=== PATIENT | female | born 1955 | race Caucasian/White ===

== ENCOUNTER → 2016-04-23 | Outpatient (CLI) | payer OTHER ==
[~2016-04-23] MED LIST: /PANT40TA OR; /SUCR1TA OR; ALLO100T PO; ATIV1TAB10 PO; BACITAB3 PO; CIPR25SS OR; COLA100C PO; ESTR25TA PO; FERR325T OR; FISH1000 PO; FLON0.05; HAIRTAB5 PO; HYDR25TA6 PO; JANU100T PO; LIPI10TA PO; LISI10TA2 PO; LISI10TA4 PO; LUTE6TAB2 PO; MEDR2.5T2 PO; METF-414 PO; NORCOTAB PO; OXYC-299 PO; PRAV40TA PO; PRIN10TA PO; PROBCAP13 PO; SENO8.6T2 PO; THERTAB30 PO; VENL100T PO; VENL75CA PO; ZANA2CAP PO; ZOFR20TA PO
--- NOTE | 2016-04-23 12:03 | REPMRS ---
Patient History The patient states she had a clinical breast exam in Patient is postmenopausal and had first child at age 34. No known family history of cancer. Taking progesterone for 12 years. Taking unspecified hormones for 12 years. Digital Woman Screen Mammo: April 23, 2016 - Exam #: [id number] Bilateral CC and MLO view(s) were taken. Technologist: Brittani Carpenter, Technologist Prior study comparison: March 13, 2015, digital woman screen mammo performed at [facility]. March 09, 2014, digital woman screen mammo performed at [facility]. FINDINGS: There are scattered fibroglandular densities. There has been no change in the appearance of the mammogram from the prior studies. There is a mild amount of residual fibroglandular tissue which is fairly symmetric. There is no interval development of dominant mass, architectural distortion, or clustered microcalcification suggestive of malignancy. ASSESSMENT: BI-RADS/ACR category 1 mammogram. Negative. Recommendation Routine screening mammogram in 1 year (for women over age 40). This mammogram was interpreted with the aid of an FDA-approved computer-aided dectection system. Electronically Signed By: Roscoe Roman MD 04/23/16 0757
== END ==
LOC: M WHC 10:04
PROVIDERS: ATTEND Nurse Practitioner Family
DX: Z12.31 Encounter for screening mammogram for malignant neoplasm of breast (principal)

== ENCOUNTER → 2016-04-23 | Outpatient (REF) | payer OTHER | LOC: M SFHCWAGY 10:38 | PROVIDERS: ATTEND Nurse Practitioner Family | DX: Z12.4 Encounter for screening for malignant neoplasm of cervix (principal) ==

== ENCOUNTER → 2016-07-10 | Outpatient (REF) | payer OTHER ==
[~2016-07-10] MED LIST changes: -COLA100C PO; +COLA100C3 PO
[2016-07-10 14:05] LABS: RETIC HEMOGLOBIN CONTENT CHr 30.2 PG (24-36); RETICULOCYTE ABSOLUTE ADVIA212 62 x10(9)/L (17-77)
[2016-07-10 14:07] LABS: REASON FOR REVIEW COMPREHENSIVE REVIEW
[2016-07-10 14:28] LABS: TOTAL PROTEIN 7.8 GM/DL (6.4-8.2)
[2016-07-12 11:03] LABS: ALBUMIN 4.52 GM/DL (3.29-5.55); GAMMA GLOBULIN % 9.1 % (11.1-18.8)
[2016-07-14 14:08] LABS: SOLUBLE TRANSFERRIN RECEPTOR 16.1 nmol/L (12.2-27.3)
== END ==
LOC: M LAB REF 13:21
PROVIDERS: ATTEND Internal Medicine Medical Oncology
DX: D64.9 Anemia, unspecified (principal)

== ENCOUNTER → 2016-07-17 | Outpatient (CLI) | payer OTHER ==
--- NOTE | 2016-07-17 17:20 | REP ---
LEFT AXILLARY ULTRASOUND: Real-time sonographic evaluation of the left axillary region performed. Several lymph nodes are seen in the left axillary region. The largest measures 1.9 x 1.0 x 1.4 cm and 2.8 x 0.9 x 1.4 cm both at the upper limits of normal in size. No other cystic or solid nodule is seen. IMPRESSION: ACR 2 benign. Normal sized lymph nodes are seen in the left axillary region with no other evidence of suspicious cystic or solid nodule. Signed by Roscoe Roman MD 07/18/2016 04:17 P
== END ==
LOC: M RAD 09:53
PROVIDERS: ATTEND Internal Medicine Medical Oncology
DX: D64.9 Anemia, unspecified (principal); D72.819 Decreased white blood cell count, unspecified

== ENCOUNTER → 2017-07-24 | Outpatient (REF) | payer MEDICARE, OTHER ==
[2017-07-24 13:52] LABS: TOTAL PROTEIN,RANDOM URINE 41.4 MG/DL (0.0-12.0)
[2017-07-25 14:10] LABS: FERRITIN 38 NG/ML (8-252); IRON (FE) 79 UG/DL (50-170); PERCENT SATURATION 21.1 % (13.2-45.0); TOTAL IRON BINDING CAPACITY 374 UG/DL (250-450); TOTAL PROTEIN 7.8 GM/DL (6.4-8.2)
[2017-07-27 00:06] LABS: FREE LAMBDA LIGHT CHAINS SERUM 30.5 mg/L (5.7-26.3); KAPPA/LAMBDA RATIO SERUM 0.82 (0.26-1.65)
[2017-07-29 13:20] LABS: ALBUMIN 4.46 GM/DL (3.29-5.55); ALBUMIN % 57.2 % (55.8-66.1); ALPHA-1-GLOBULIN % 5.3 % (2.9-4.9); ALPHA-1-GLOBULINS 0.41 GM/DL (0.17-0.41); ALPHA-2-GLOBULINS 1.13 GM/DL (0.42-0.99); ALPHA-2-GLOBULINS % 14.5 % (7.1-11.8); BETA-1-GLOBULINS 0.48 GM/DL (0.28-0.60); BETA-1-GLOBULINS % 6.2 % (4.7-7.2); BETA-2-GLOBULINS 0.55 GM/DL (0.19-0.55); GAMMA GLOBULIN % 9.8 % (11.1-18.8); GAMMA GLOBULINS 0.76 GM/DL (0.65-1.58)
== END ==
LOC: M LAB REF 12:54
DX: N18.3 Chronic kidney disease, stage 3 (moderate) (principal); E83.52 Hypercalcemia; D63.1 Anemia in chronic kidney disease
CPT/HCPCS: 83550

== ENCOUNTER 2017-08-27 09:02 | Day surgery (SDC) | payer MEDICARE ==
[2017-08-27 09:48] LABS: BEDSIDE GLUCOSE 135 MG/DL (80-115)
[2017-08-27] MEDS: LR 1,000 ML IV (09:55)
[2017-08-27] MEDS ORDERED: fentaNYL 250 MCG/5 ML INJECTION (J3010) As Ordered (10:06)
[2017-08-27] MEDS ORDERED: ONDANSETRON 4MG/2ML VIAL (J2405) As Ordered (10:06)
[2017-08-27] MEDS ORDERED: LIDOCAINE 2% INJ 100 MG/5 ML SDV (FOR ANES.) As Ordered (10:06)
[2017-08-27] MEDS ORDERED: PROPOFOL 200 MG/20 ML VIAL As Ordered (10:06)
[2017-08-27] MEDS ORDERED: dexameTHASONE 4 MG/ML 1ML VIAL (J1100) As Ordered (10:06)
[2017-08-27] MEDS ORDERED: ROCURONIUM BROMIDE 50 MG/5 ML VIAL As Ordered (10:06)
[2017-08-27] MEDS ORDERED: MIDAZOLAM INJ 2 MG/2 ML VIAL (J2250) As Ordered (10:08)
[2017-08-27] MEDS ORDERED: SUCCINYLCHOLINE 100 MG/5 ML SYRINGE (J0330) As Ordered (11:26)
[2017-08-27] MEDS ORDERED: LR 1,000 ML IV ×2 (12:00→12:15)
[2017-08-27] MEDS ORDERED: ACETAMINOPH W/CODEINE #3 TAB UD As Ordered (12:06)
[2017-08-27] MEDS: ACETAMINOPH W/CODEINE #3 TAB UD PO (12:10)
[2017-08-27] MEDS ORDERED: ONDANSETRON 4MG/2ML VIAL (J2405) IV (12:15)
[2017-08-27] MEDS ORDERED: fentaNYL 100 MCG/2 ML INJECTION (J3010) IV (12:15)
== END 2017-08-27 13:10 | disposition home or self-care (01) ==
LOC: M SDC 09:02
DX: C02.9 Malignant neoplasm of tongue, unspecified (principal); D63.1 Anemia in chronic kidney disease; E11.22 Type 2 diabetes mellitus with diabetic chronic kidney disease; N18.3 Chronic kidney disease, stage 3 (moderate); F32.9 Major depressive disorder, single episode, unspecified; Z88.8 Allergy status to other drugs, medicaments and biological substances; Z79.899 Other long term (current) drug therapy; I10 Essential (primary) hypertension; K64.8 Other hemorrhoids
CPT/HCPCS: 41120

== ENCOUNTER → 2017-09-25 | Outpatient (REF) | payer MEDICARE ==
[2017-09-29 14:14] LABS: ALUMINUM LEVEL 10 ug/L (0-9)
[2017-10-02 14:19] LABS: UPEP INTERPRETATION NO M-SPIKE NOTED; URINE VOLUME RANDOM ML
== END ==
LOC: M LAB REF 17:07
DX: N18.3 Chronic kidney disease, stage 3 (moderate) (principal); E83.52 Hypercalcemia
CPT/HCPCS: 82108

== ENCOUNTER → 2017-10-13 | Outpatient (CLI) | payer MEDICARE | LOC: M WHC 15:11 | DX: Z01.419 Encounter for gynecological examination (general) (routine) without abnormal findings (principal); Z12.31 Encounter for screening mammogram for malignant neoplasm of breast (principal); Z78.0 Asymptomatic menopausal state; Z92.29 Personal history of other drug therapy; Z12.12 Encounter for screening for malignant neoplasm of rectum | CPT/HCPCS: 77067 ==

== ENCOUNTER → 2018-01-19 | Outpatient (REF) | payer MEDICARE ==
[2018-01-19 19:09] LABS: IRON (FE) 49 UG/DL (50-170); PERCENT SATURATION 14.2 % (13.2-45.0); TOTAL IRON BINDING CAPACITY 345 UG/DL (250-450)
[2018-01-23 00:56] LABS: VITAMIN D 1,25 DIHYDROXY 20.6 pg/mL (19.9-79.3)
== END ==
LOC: M LAB REF 17:30
DX: E83.52 Hypercalcemia (principal); N18.3 Chronic kidney disease, stage 3 (moderate); D63.1 Anemia in chronic kidney disease
CPT/HCPCS: 83550

== ENCOUNTER 2018-01-23 08:37 | Day surgery (SDC) | payer MEDICARE ==
[2018-01-23] MEDS: NS 1,000 ML IV (06:30)
[2018-01-23] MEDS ORDERED: fentaNYL 100 MCG/2 ML INJECTION (J3010) As Ordered (10:02)
[2018-01-23] MEDS ORDERED: LIDOCAINE 2% INJ 100 MG/5 ML SDV (FOR ANES.) As Ordered (10:02)
[2018-01-23] MEDS ORDERED: PROPOFOL 500 MG/50 ML VIAL As Ordered (10:02)
== END 2018-01-23 10:59 | disposition home or self-care (01) ==
LOC: M OPP 08:37
DX: D50.9 Iron deficiency anemia, unspecified (principal); K64.0 First degree hemorrhoids; K57.30 Diverticulosis of large intestine without perforation or abscess without bleeding; K21.9 Gastro-esophageal reflux disease without esophagitis; F32.9 Major depressive disorder, single episode, unspecified; I12.9 Hypertensive chronic kidney disease with stage 1 through stage 4 chronic kidney disease, or unspecified chronic kidney disease; E78.00 Pure hypercholesterolemia, unspecified; N18.3 Chronic kidney disease, stage 3 (moderate); Z79.84 Long term (current) use of oral hypoglycemic drugs; Z79.899 Other long term (current) drug therapy; Z88.0 Allergy status to penicillin; Z88.8 Allergy status to other drugs, medicaments and biological substances; Z85.810 Personal history of malignant neoplasm of tongue
CPT/HCPCS: 45378

== ENCOUNTER 2018-02-04 07:18 | Outpatient (CLI) | payer MEDICARE ==
[2018-02-04] MEDS: IRON SUCROSE 25 MG in NS 50 ML IV (07:45)
[2018-02-04] MEDS: IRON SUCROSE 275 MG in NS 250 ML IV (09:17)
== END 2018-02-04 13:05 | disposition home or self-care (01) ==
LOC: M INFU 07:18
DX: D50.9 Iron deficiency anemia, unspecified (principal); Z88.0 Allergy status to penicillin; Z88.8 Allergy status to other drugs, medicaments and biological substances
CPT/HCPCS: J1756

== ENCOUNTER → 2018-03-25 | Outpatient (REF) | payer MEDICARE ==
[~2018-03-25] MED LIST changes: +ALLO10TA PO; +ATOR1TAB19 PO; +AURY1TAB PO; +BACITAB PO; -BACITAB3 PO; -COLA100C3 PO; +COLA100C5 PO; +FLON1SPR NARES; +GABA-1171 PO; +HAIR1CAP2 PO; +METF-839 PO; +OXYC-141 PO; -OXYC-299 PO; +PANT-23 PO; -SENO8.6T2 PO; +SENO8.6T5 PO; +SUCR1TA PO; +TYLE650T35 PO; +VENL75CA2 PO; -ZOFR20TA PO; +ZOFR4TAB16 PO
[2018-03-25 18:45] LABS: APPEARANCE, URINE CLEAR (CLEAR); BACTERIA, URINE AUTO NEGATIVE (NEGATIVE); BILIRUBIN, URINE AUTO NEGATIVE (NEGATIVE); BLOOD, URINE BLOOD NEGATIVE (NEGATIVE); COLOR, URINE AMBER (YELLOW); GLUCOSE, URINE (UA) AUTO NEGATIVE (NEGATIVE); KETONE, URINE AUTO NEGATIVE (NEGATIVE); LEUKOCYTE ESTERASE, URINE AUTO NEGATIVE (NEGATIVE); MUCUS, URINE SMALL (NEGATIVE); NITRITE, URINE AUTO POSITIVE (NEGATIVE); PROTEIN, URINE AUTO 1+ mg/dL (NEGATIVE); RBC, URINE AUTO 3 /HPF (0-3); SPECIFIC GRAVITY URINE AUTO 1.017 (1.002-1.035); SQUAMOUS EPITHELIAL CELL UR AU 0 /HPF (0-6); WBC, URINE AUTO 2 /HPF (0-3)
== END ==
LOC: M LAB REF 17:04
PROVIDERS: ATTEND Physician Assistant
DX: R35.0 Frequency of micturition (principal)

== ENCOUNTER → 2018-04-16 | Outpatient (REF) | payer MEDICARE ==
[2018-04-16 18:40] LABS: APPEARANCE, URINE MANUAL CLEAR (CLEAR); COLOR, URINE MANUAL ORANGE (YELLOW)
[2018-04-16 18:41] LABS: BILIRUBIN, URINE MANUAL OBSCURED (NEGATIVE); BLOOD URINE MANUAL OBSCURED (NEGATIVE); GLUCOSE, URINE (UA) MANUAL OBSCURED mg/dL (NEGATIVE); KETONE, URINE MANUAL OBSCURED mg/dL (NEGATIVE); LEUKOCYTE ESTERASE, URINE MAN OBSCURED (NEGATIVE); NITRITE, URINE MANUAL OBSCURED (NEGATIVE); PH,URINE MAN OBSCURED UNITS (5.0 - 7.0); PROTEIN, URINE MANUAL OBSCURED mg/dL (NEGATIVE); SPECIFIC GRAVITY,URINE MANUAL 1.019 (1.002-1.035); UROBILINOGEN, URINE MANUAL OBSCURED mg/dl (NORMAL)
[2018-04-16 18:56] LABS: SQUAMOUS EPITHELIAL CELL URINE SMALL AMOUNT /hpf (SMALL AMT); TRANSITIONAL EPI CELLS, URINE MOD AMOUNT /hpf
[2018-04-16 18:58] LABS: BACTERIA, URINE NONE SEEN; RENAL EPITHELIAL CELLS, URINE SMALL AMOUNT /hpf
[2018-04-16 18:59] LABS: HYALINE CAST, URINE 0-1 /lpf (0-1); MUCUS, URINE MOD AMOUNT (NEGATIVE)
== END ==
LOC: M LAB REF 17:12
PROVIDERS: ATTEND Physician Assistant
DX: R35.0 Frequency of micturition (principal); R30.0 Dysuria

== ENCOUNTER → 2018-04-22 | Outpatient (REF) | payer MEDICARE ==
[2018-04-22 14:12] LABS: APPEARANCE, URINE CLEAR (CLEAR); BACTERIA, URINE AUTO NEGATIVE (NEGATIVE); BILIRUBIN, URINE AUTO NEGATIVE (NEGATIVE); BLOOD, URINE BLOOD NEGATIVE (NEGATIVE); COLOR, URINE YELLOW (YELLOW); GLUCOSE, URINE (UA) AUTO NEGATIVE (NEGATIVE); KETONE, URINE AUTO NEGATIVE (NEGATIVE); LEUKOCYTE ESTERASE, URINE AUTO NEGATIVE (NEGATIVE); MUCUS, URINE SMALL (NEGATIVE); NITRITE, URINE AUTO NEGATIVE (NEGATIVE); PROTEIN, URINE AUTO NEGATIVE (NEGATIVE); RBC, URINE AUTO 3 /HPF (0-3); SPECIFIC GRAVITY URINE AUTO 1.019 (1.002-1.035); SQUAMOUS EPITHELIAL CELL UR AU 0 /HPF (0-6); UROBILINOGEN, URINE AUTO 0.2 mg/dL (0.0-2.0); WBC, URINE AUTO 2 /HPF (0-3)
== END ==
LOC: M LAB REF 12:53
PROVIDERS: ATTEND Physician Assistant
DX: R35.0 Frequency of micturition (principal)

== ENCOUNTER → 2018-05-21 | Outpatient (CLI) | payer MEDICARE ==
--- NOTE | 2018-05-21 17:33 | REP ---
RENAL ULTRASOUND COMPLETE: 05/21/2018 Comparison: 06/28/2013. Clinical history: Recurrent UTI. Findings: The right kidney is 9.9 x 4.3 x 5.6 cm. There is no hydronephrosis or hydroureter. Cortical thickness is normal. The echogenicity is similar to that of the adjacent liver. There is no stone, mass or perinephric fluid. Lower pole cyst noted 5 x 5 x 6 mm. Left kidney is 9.2 x 3.5 x 5 cm. It has isoechoic to increased cortical echogenicity. Cortical thickness is adequate. There is no hydronephrosis or hydroureter. Some lobation is noted. This is identical to the appearance on the previous ultrasound 5 years ago. Sinus lipomatosis noted. No stone, mass, cyst or perinephric fluid. The bladder shows bilateral ureteral jets. It is underfilled measuring 5.5 x 2.6 x 2.2 cm for this examination. Impression: 1. Isoechoic to slightly hyperechoic cortex bilaterally that may reflect some medical renal disease. There is no hydronephrosis, hydroureter, solid mass or perinephric fluid. A 5 x 6 mm cyst lower pole on the right. 2. Bilateral ureteral jets were observed in the bladder but the bladder is underfilled and cannot be well evaluated. The prevoid volume on this study was 15.9 ml. Electronically Signed by Morgan Cordero MD 05/21/2018 07:57 P
== END ==
LOC: M SMT 13:00
PROVIDERS: ATTEND Urology
DX: N39.0 Urinary tract infection, site not specified (principal); N28.1 Cyst of kidney, acquired

== ENCOUNTER → 2018-06-09 | Outpatient (REF) | payer MEDICARE ==
[~2018-06-09] MED LIST changes: -/PANT40TA OR; -/SUCR1TA OR; +HYDR-3715 PO; -NORCOTAB PO; +PROT1TAB2 OR; +SUCR1TAB56 OR
[2018-06-10 13:38] LABS: PERCENT SATURATION 16.6 % (13.2-45.0)
== END ==
LOC: M LAB REF 13:00
PROVIDERS: ATTEND Internal Medicine Nephrology
DX: N18.3 Chronic kidney disease, stage 3 (moderate) (principal); D63.1 Anemia in chronic kidney disease

== ENCOUNTER → 2018-08-27 | Outpatient (CLI) | payer MEDICARE ==
--- NOTE | 2018-08-27 16:02 | REP ---
Sestamibi parathyroid nuclear scintigraphy with SPECT: History: Hypercalcemia. Technique: 27.4 mCi of technetium 99m sestamibi is injected. 15-minute delay and three hour delayed planar images of the head and neck and chest region are acquired. In addition, a SPECT acquisition is acquired and coronal, sagittal and axial reformatted scans are reviewed along with CINE rotational images. Scintigraphic findings: Initial scan images demonstrate thyroid and salivary gland uptake as expected. Delayed images show washout from the thyroid lobes bilaterally. No residual area of increased uptake is seen in the head and neck soft tissues or in the chest to suggest parathyroid adenoma. SPECT imaging shows no additional finding. Impression: Negative radionuclide sestamibi parathyroid scan. Electronically Signed by Elias Werner MD 08/27/2018 07:51 P
== END ==
LOC: M RAD 09:36
PROVIDERS: ATTEND Internal Medicine Nephrology
DX: E83.52 Hypercalcemia (principal)
CPT/HCPCS: 78070; 78803; A9500

== ENCOUNTER → 2018-09-07 | Outpatient (REF) | payer MEDICARE | LOC: M LAB REF 16:52 | PROVIDERS: ATTEND Internal Medicine Nephrology | DX: N18.3 Chronic kidney disease, stage 3 (moderate) (principal) ==

== ENCOUNTER → 2018-10-14 | Outpatient (CLI) | payer MEDICARE ==
--- NOTE | 2018-10-14 15:17 | REPMRS ---
Patient History The patient states she had a clinical breast exam in 10/2018. Patient is postmenopausal, has history of tongue cancer at age 62, and had first child at age 34. No known family history of cancer. Took progesterone for 12 years. Took unspecified hormones for 12 years. 3D TOMOSYNTHESIS WAS PERFORMED. The [facility] lifetime risk for breast cancer is 9.0%. Digital Woman Screen Mammo: October 14, 2018 - Exam #: [id number] Bilateral CC and MLO view(s) were taken. Technologist: Evelin Verdin, Technologist Prior study comparison: October 13, 2017, bilateral digital woman screen mammo performed at [facility]. April 23, 2016, digital woman screen mammo performed at [facility]. FINDINGS: There are scattered fibroglandular densities. There has been no change in the appearance of the mammogram from the prior studies. There is a mild amount of residual fibroglandular tissue which is fairly symmetric. There is no interval development of dominant mass, architectural distortion, or clustered microcalcification suggestive of malignancy. Assessment: BI-RADS/ACR category 1 mammogram. Negative Mammogram. Recommendation Routine screening mammogram in 1 year (for women over age 40). This mammogram was interpreted with the aid of an FDA-approved computer-aided dectection system. Electronically Signed By: Roscoe Roman MD 10/14/18 0425
== END ==
LOC: M WHC 13:17
PROVIDERS: ATTEND Nurse Practitioner Family
DX: Z12.31 Encounter for screening mammogram for malignant neoplasm of breast (principal); Z78.0 Asymptomatic menopausal state; Z85.810 Personal history of malignant neoplasm of tongue; Z92.29 Personal history of other drug therapy

== ENCOUNTER → 2018-10-14 | Outpatient (REF) | payer MEDICARE | LOC: M SFHCWAGY 13:47 | PROVIDERS: ATTEND Nurse Practitioner Family | DX: Z12.4 Encounter for screening for malignant neoplasm of cervix (principal) ==

== ENCOUNTER → 2018-12-14 | Outpatient (REF) | payer MEDICARE ==
[2018-12-14 14:38] LABS: TOTAL VOLUME, URINE 2175 ML
[2018-12-14 14:39] LABS: CREATININE 24 HOUR, URINE 1139.7 MG/24HR (600-1800); CREATININE, URINE 52.4 MG/DL
[2018-12-14 14:48] LABS: CALCIUM, URINE < 5.0 MG/DL
== END ==
LOC: M LAB REF 13:29
PROVIDERS: ATTEND Internal Medicine Endocrinology, Diabetes & Metabolism
DX: E83.52 Hypercalcemia (principal)

== ENCOUNTER → 2019-07-08 | Outpatient (REF) | payer MEDICARE ==
[2019-07-08 18:14] LABS: PERCENT SATURATION 18.4 % (13.2-45.0)
== END ==
LOC: M LAB REF 16:43
PROVIDERS: ATTEND Internal Medicine Nephrology
DX: N18.3 Chronic kidney disease, stage 3 (moderate) (principal); D63.1 Anemia in chronic kidney disease

== ENCOUNTER → 2020-02-15 | Outpatient (CLI) | payer SELFPAY ==
[~2020-02-15] MED LIST changes: +ACET650T61 PO; -TYLE650T35 PO
== END ==
LOC: M LABSMTC 16:22
PROVIDERS: ATTEND Pediatrics
DX: Z11.59 Encounter for screening for other viral diseases (principal)

== ENCOUNTER → 2021-01-09 | Outpatient (REF) | payer MEDICARE | LOC: M LAB REF 17:12 | PROVIDERS: ATTEND Nurse Practitioner Family | DX: E83.42 Hypomagnesemia (principal) ==

== ENCOUNTER → 2021-08-30 | Outpatient (CLI) | payer MEDICARE | LOC: M WHC 14:07 | PROVIDERS: ATTEND Advanced Practice Midwife | DX: Z12.31 Encounter for screening mammogram for malignant neoplasm of breast (principal); Z92.29 Personal history of other drug therapy ==

== ENCOUNTER → 2021-09-17 | Outpatient (CLI) | payer MEDICARE | LOC: M WHC 14:07 | PROVIDERS: ATTEND Advanced Practice Midwife | DX: Z13.820 Encounter for screening for osteoporosis (principal); M85.852 Other specified disorders of bone density and structure, left thigh; M85.851 Other specified disorders of bone density and structure, right thigh ==

== ENCOUNTER → 2021-09-18 | Outpatient (CLI) | payer MEDICARE | LOC: M WHC 14:07 | PROVIDERS: ATTEND Nurse Practitioner Family | DX: M79.604 Pain in right leg (principal) ==

== ENCOUNTER → 2021-12-20 | Outpatient (REF) | payer MEDICARE ==
[2021-12-20 19:30] LABS: APPEARANCE, URINE MANUAL CLEAR (CLEAR); COLOR, URINE MANUAL ORANGE (YELLOW); GLUCOSE, URINE (UA) MANUAL OBSCURED mg/dL (NEGATIVE); PH,URINE MAN OBSCURED UNITS (5.0 - 7.0); PROTEIN, URINE MANUAL OBSCURED mg/dL (NEGATIVE)
[2021-12-20 19:31] LABS: BILIRUBIN, URINE MANUAL OBSCURED (NEGATIVE); BLOOD URINE MANUAL OBSCURED (NEGATIVE); KETONE, URINE MANUAL OBSCURED mg/dL (NEGATIVE); LEUKOCYTE ESTERASE, URINE MAN OBSCURED (NEGATIVE); NITRITE, URINE MANUAL OBSCURED (NEGATIVE); SPECIFIC GRAVITY,URINE MANUAL 1.017 (1.002-1.035); UROBILINOGEN, URINE MANUAL OBSCURED mg/dl (NORMAL)
[2021-12-20 20:24] LABS: SQUAMOUS EPITHELIAL CELL URINE SMALL AMOUNT /hpf (SMALL AMT); WBC, URINE 15-20 /hpf (0-3)
[2021-12-20 20:25] LABS: BACTERIA, URINE SMALL AMOUNT
== END ==
LOC: M LAB REF 17:17
PROVIDERS: ATTEND Registered Nurse
DX: R30.0 Dysuria (principal)

== ENCOUNTER → 2022-01-24 | Outpatient (REF) | payer MEDICARE ==
[2022-01-24 19:27] LABS: PERCENT SATURATION 12.4 % (13.2-45.0)
== END ==
LOC: M LAB REF 16:54
PROVIDERS: ATTEND Nurse Practitioner Family
DX: D50.9 Iron deficiency anemia, unspecified (principal); D64.9 Anemia, unspecified

== ENCOUNTER → 2022-10-17 | Outpatient (CLI) | payer MEDICARE ==
[2022-10-17 17:54] LABS: CALCIUM LEVEL 10.3 MG/DL (8.3-10.6)
[2022-10-17 17:59] LABS: TOTAL 25(OH) VITAMIN D 34.4 NG/ML (20.0-100.0)
== END ==
LOC: M PLALAB 15:35
PROVIDERS: ATTEND Internal Medicine Endocrinology, Diabetes & Metabolism
DX: M81.0 Age-related osteoporosis without current pathological fracture (principal)

== ENCOUNTER → 2022-12-21 | Outpatient (CLI) | payer MEDICARE ==
[2022-12-21 12:24] LABS: BASO # 0.1 10^3/uL (0.0-0.2); BASO % 0.7 % (0.0-1.0); EOS # 0.3 10^3/uL (0.0-0.5); EOS % 2.7 % (0.0-3.0); HEMATOCRIT 31.4 % (36.0-47.0); LYMPH # 3.4 10^3/uL (1.5-5.0); LYMPH % 32.7 % (24.0-44.0); MEAN CORPUSCULAR HEMOGLOBIN 29.9 pg (27.0-33.0); MEAN CORPUSCULAR HGB CONC 31.8 g/dl (32.0-36.5); MONO # 0.8 10^3/uL (0.0-0.8); MONO % 7.6 % (2.0-8.0); NEUTROPHILS # 5.8 10^3/uL (1.5-8.5); NEUTROPHILS % 55.9 % (36.0-66.0); PLATELET COUNT, AUTOMATED 332 10^3/uL (150-450); RED BLOOD COUNT 3.34 10^6/uL (4.00-5.40); WHITE BLOOD COUNT 10.3 10^3/uL (4.0-10.0)
[2022-12-21 12:36] LABS: HEMOGLOBIN A1c 5.7 % (4.0-6.0)
[2022-12-21 12:44] LABS: ALBUMIN 3.9 G/DL (3.2-5.2); BILIRUBIN,TOTAL 0.2 MG/DL (0.3-1.2); CALCIUM LEVEL 10.8 MG/DL (8.3-10.6); CREATININE FOR GFR 1.38 MG/DL (0.55-1.30); GLOMERULAR FILTRATION RATE 40.6 (>45)
== END ==
LOC: M LAB 11:46
PROVIDERS: ATTEND Family Medicine
DX: I10 Essential (primary) hypertension (principal)

== ENCOUNTER → 2023-02-13 | Outpatient (CLI) | payer MEDICARE | LOC: M WHC 14:17 | PROVIDERS: ATTEND Advanced Practice Midwife | DX: Z12.31 Encounter for screening mammogram for malignant neoplasm of breast (principal); R92.1 Mammographic calcification found on diagnostic imaging of breast ==

== ENCOUNTER → 2023-07-10 | Outpatient (REF) | payer MEDICARE ==
[2023-07-11 11:44] LABS: BASO # 0.1 10^3/uL (0.0-0.2); BASO % 0.7 % (0.0-1.0); EOS # 0.2 10^3/uL (0.0-0.5); EOS % 1.9 % (0.0-3.0); HEMATOCRIT 33.3 % (36.0-47.0); HEMOGLOBIN 10.5 g/dl (12.0-15.5); LYMPH # 2.7 10^3/uL (1.5-5.0); MEAN CORPUSCULAR HEMOGLOBIN 30.2 pg (27.0-33.0); MEAN CORPUSCULAR HGB CONC 31.5 g/dl (32.0-36.5); MEAN CORPUSCULAR VOLUME 95.7 fl (80.0-96.0); MONO # 0.8 10^3/uL (0.0-0.8); MONO % 8.6 % (2.0-8.0); NEUTROPHILS # 5.3 10^3/uL (1.5-8.5); NEUTROPHILS % 58.2 % (36.0-66.0); PLATELET COUNT, AUTOMATED 341 10^3/uL (150-450); RED BLOOD COUNT 3.48 10^6/uL (4.00-5.40); WHITE BLOOD COUNT 9.1 10^3/uL (4.0-10.0)
[2023-07-11 12:02] LABS: HEMOGLOBIN A1c 5.7 % (4.0-6.0)
[2023-07-11 12:10] LABS: ALBUMIN 3.8 G/DL (3.2-5.2); BILIRUBIN,TOTAL 0.2 MG/DL (0.3-1.2); CALCIUM LEVEL 10.3 MG/DL (8.3-10.6); CHOLESTEROL RISK RATIO 2.46 (<5); CREATININE FOR GFR 1.39 MG/DL (0.55-1.30); GLOMERULAR FILTRATION RATE 40.1 (>45); HDL CHOLESTEROL 78.6 MG/DL (>40); LDL CHOLESTEROL 71.6 MG/DL (<100); NON-HDL-C 115.4 MG/DL; POTASSIUM SERUM 5.5 MMOL/L (3.5-5.1); TOTAL PROTEIN 6.8 G/DL (5.7-8.2)
== END ==
LOC: M PLALAB 10:39
PROVIDERS: ATTEND Family Medicine
DX: E11.22 Type 2 diabetes mellitus with diabetic chronic kidney disease (principal)

== ENCOUNTER → 2023-07-10 | Outpatient (REF) | payer MEDICARE ==
[2023-07-11 12:52] LABS: CALCIUM LEVEL 10.5 MG/DL (8.3-10.6)
[2023-07-11 12:58] LABS: TOTAL 25(OH) VITAMIN D 33.1 NG/ML (20.0-100.0)
== END ==
LOC: M PLALAB 10:37
PROVIDERS: ATTEND Internal Medicine Endocrinology, Diabetes & Metabolism
DX: M81.0 Age-related osteoporosis without current pathological fracture (principal); E83.52 Hypercalcemia

== ENCOUNTER → 2023-10-15 | Outpatient (REF) | payer MEDICARE ==
[2023-10-15 18:46] LABS: CREATININE,RANDOM URINE 117.5 MG/DL
[2023-10-15 18:53] LABS: TOTAL PROTEIN,RANDOM URINE 167.3 MG/DL (0.0-14.0)
== END ==
LOC: M LAB REF 16:59
PROVIDERS: ATTEND Nurse Practitioner Family
DX: N18.9 Chronic kidney disease, unspecified (principal); D63.1 Anemia in chronic kidney disease

== ENCOUNTER → 2023-11-06 | Outpatient (CLI) | payer MEDICARE | LOC: M WUC 15:46 | PROVIDERS: ATTEND Student in an Organized Health Care Education/Training Program | DX: M54.50 Low back pain, unspecified (principal) ==

== ENCOUNTER → 2024-02-17 | Outpatient (REF) | payer MEDICARE ==
[2024-02-18 18:39] LABS: TOTAL PROTEIN,RANDOM URINE 109.7 MG/DL (0.0-14.0)
== END ==
LOC: M LAB REF 17:13
PROVIDERS: ATTEND Nurse Practitioner Family
DX: R80.9 Proteinuria, unspecified (principal)

== ENCOUNTER → 2024-07-02 | Outpatient (CLI) | payer MEDICARE | LOC: M RAD 12:05 | PROVIDERS: ATTEND Nurse Practitioner Family | DX: N18.32 Chronic kidney disease, stage 3b (principal); N26.1 Atrophy of kidney (terminal) ==

== ENCOUNTER → 2024-09-08 | Outpatient (CLI) | payer MEDICARE ==
[2024-09-08 11:05] VITALS: TEMP 98.5
[2024-09-08 11:55] VITALS: BP 118/76; O2SAT 99
== END ==
LOC: M WHCPRO 10:53
PROVIDERS: ATTEND Advanced Practice Midwife
DX: N63.21 Unspecified lump in the left breast, upper outer quadrant (principal); C50.412 Malignant neoplasm of upper-outer quadrant of left female breast

== ENCOUNTER → 2024-09-17 | Outpatient (REF) | payer MEDICARE ==
[2024-09-17 18:50] LABS: IRON (FE) 74.0 UG/DL (50-170); PERCENT SATURATION 21.0 % (13.2-45.0)
== END ==
LOC: M LAB REF 17:11
PROVIDERS: ATTEND Nurse Practitioner Family
DX: D50.9 Iron deficiency anemia, unspecified (principal)

== ENCOUNTER → 2024-09-27 | Outpatient (CLI) | payer MEDICARE ==
[~2024-09-27] MED LIST changes: +ATOR80TA59 PO; +CARV25TA PO; +CINA30TA5 PO; +DENO60SY2 SC; +ELIQ5TAB PO; +JANU25TA PO; +SENN-225 PO; -SENO8.6T5 PO; +SUCR1TAB56 PO; +[UNRECOGNIZED DRUG - CODE] PO; +[UNRECOGNIZED DRUG - CODE] PO
[2024-09-28 10:45] LABS: BASO # 0.1 10^3/uL (0.0-0.2); BASO % 0.6 % (0.0-1.0); EOS # 0.2 10^3/uL (0.0-0.5); EOS % 1.9 % (0.0-3.0); LYMPH # 2.4 10^3/uL (1.5-5.0); LYMPH % 23.8 % (24.0-44.0); MONO # 0.9 10^3/uL (0.0-0.8); MONO % 9.4 % (2.0-8.0); NEUTROPHILS # 6.3 10^3/uL (1.5-8.5); NEUTROPHILS % 64.0 % (36.0-66.0); PLATELET COUNT, AUTOMATED 304 10^3/uL (150-450)
[2024-09-28 11:12] LABS: ALT/SGPT 16.0 U/L (7.0-40); AST/SGOT 15.0 U/L (<34); CALCIUM LEVEL 8.8 MG/DL (8.3-10.6); CARBON DIOXIDE LEVEL 25.0 MMOL/L (20-31); CHLORIDE LEVEL 105.0 MMOL/L (98-107); CREATININE FOR GFR 1.99 MG/DL (0.55-1.30); GLOMERULAR FILTRATION RATE 26.7 (>45); POTASSIUM SERUM 5.5 MMOL/L (3.5-5.1); SODIUM LEVEL 140.0 MMOL/L (136-145)
== END ==
LOC: M PLALAB 16:24
PROVIDERS: ATTEND Nurse Practitioner Family
DX: Z01.818 Encounter for other preprocedural examination (principal)

== ENCOUNTER → 2024-10-06 | Outpatient (CLI) | payer MEDICARE ==
[~2024-10-06] MED LIST changes: +IRON27TA2 PO; +MAGN400C PO; +METO50TA7 PO; +OXYC-1 PO
[2024-10-07 09:13] VITALS: TEMP 98.2
[2024-10-07 09:32] VITALS: BP 132/74; O2SAT 98
== END ==
LOC: M WHCPRO 09:36
PROVIDERS: ATTEND Surgery
DX: C50.412 Malignant neoplasm of upper-outer quadrant of left female breast (principal)
CPT/HCPCS: 19285; 77065; A4648

== ENCOUNTER 2024-10-14 07:25 | Day surgery (SDC) | payer MEDICARE ==
[~2024-10-14] VITALS: Ht 157.5 cm; Wt 76.1 kg
[~2024-10-14 07:25] MED LIST changes: -IRON27TA2 PO; +LIDOCAINE 2% 100 MG/5 ML SDV (FOR ANES.) As Ordered ONE; -MAGN400C PO; -METO50TA7 PO; +MIDAZOLAM INJ 2 MG/2 ML VIAL As Ordered ONE; -OXYC-1 PO
[2024-10-14] MEDS ORDERED: NS (Normal Saline) 0.9% 1,000 ML IV SCH ×2 (08:00→11:35)
[2024-10-14 08:24] LABS: CALCIUM LEVEL 8.6 MG/DL (8.3-10.6); CARBON DIOXIDE LEVEL 25.0 MMOL/L (20-31); CHLORIDE LEVEL 106.0 MMOL/L (98-107); CREATININE FOR GFR 2.21 MG/DL (0.55-1.30); GLOMERULAR FILTRATION RATE 23.6 (>45); POTASSIUM SERUM 4.9 MMOL/L (3.5-5.1); SODIUM LEVEL 142.0 MMOL/L (136-145)
[2024-10-14] MEDS: SCOPOLAMINE 1MG TRANSDERMAL PATCH TOP ONE (08:42)
[2024-10-14] MEDS ORDERED: IRON27TA2 PO (08:51)
[2024-10-14] MEDS ORDERED: METO50TA7 PO (08:51)
[2024-10-14] MEDS ORDERED: MAGN400C PO (08:51)
[2024-10-14] MEDS: ceFAZolin SOD 2 GM IV ONCE IV ONE (09:33)
[2024-10-14] MEDS ORDERED: KETOROLAC 30 MG/ML 1 ML VIAL As Ordered ONE (10:55)
[2024-10-14] MEDS ORDERED: ACETAMINOPHEN 1000MG/100ML IV BAG As Ordered ONE (10:55)
[2024-10-14] MEDS ORDERED: ONDANSETRON 4MG 2ML VIAL As Ordered ONE (10:55)
[2024-10-14] MEDS ORDERED: ONDANSETRON 4MG 2ML VIAL IV PRN (11:35)
[2024-10-14] MEDS ORDERED: HYDROMORPHONE HCL 0.5 MG/0.5 ML SYRINGE IV PRN (11:35)
[2024-10-14] MEDS ORDERED: OXYC-1 PO (11:56)
[2024-10-14 13:43] VITALS: BP 112/59; TEMP 97.5; O2SAT 98
[2024-11-09] MEDS ORDERED: TUME1CAP PO (13:02)
== END 2024-10-14 13:45 | disposition home or self-care (01) ==
LOC: M SDC 07:25
PROVIDERS: ATTEND Surgery
DX: C50.412 Malignant neoplasm of upper-outer quadrant of left female breast (principal); Z17.0 Estrogen receptor positive status [ER+]; Z17.32 Human epidermal growth factor receptor 2 negative status; E11.22 Type 2 diabetes mellitus with diabetic chronic kidney disease; I12.9 Hypertensive chronic kidney disease with stage 1 through stage 4 chronic kidney disease, or unspecified chronic kidney disease; N18.2 Chronic kidney disease, stage 2 (mild); D50.9 Iron deficiency anemia, unspecified; E78.00 Pure hypercholesterolemia, unspecified; Z79.899 Other long term (current) drug therapy; Z79.01 Long term (current) use of anticoagulants; Z79.84 Long term (current) use of oral hypoglycemic drugs; Z85.810 Personal history of malignant neoplasm of tongue; M10.9 Gout, unspecified; K44.9 Diaphragmatic hernia without obstruction or gangrene; Z90.89 Acquired absence of other organs; Z88.1 Allergy status to other antibiotic agents; Z88.8 Allergy status to other drugs, medicaments and biological substances
CPT/HCPCS: 19301; 36415; 38525; 80048; 88305; 88307; A9520; J0131; J0690; J2250; J2405; J3010

== ENCOUNTER → 2024-11-18 | Outpatient (CLI) | payer MEDICARE ==
[~2024-11-18] MED LIST changes: +IRON27TA2 PO; -LIDOCAINE 2% 100 MG/5 ML SDV (FOR ANES.) As Ordered ONE; +MAGN400C PO; +METO50TA7 PO; -MIDAZOLAM INJ 2 MG/2 ML VIAL As Ordered ONE; +OXYC-1 PO; +TUME1CAP PO
== END ==
LOC: M ONCR 15:02
PROVIDERS: ATTEND General Practice
DX: C50.412 Malignant neoplasm of upper-outer quadrant of left female breast (principal); Z17.0 Estrogen receptor positive status [ER+]; Z17.21 Progesterone receptor positive status; Z17.32 Human epidermal growth factor receptor 2 negative status; Z98.890 Other specified postprocedural states; Z80.6 Family history of leukemia; Z88.1 Allergy status to other antibiotic agents; Z88.6 Allergy status to analgesic agent; Z88.8 Allergy status to other drugs, medicaments and biological substances; Z79.01 Long term (current) use of anticoagulants; Z79.84 Long term (current) use of oral hypoglycemic drugs; Z79.51 Long term (current) use of inhaled steroids; Z79.620 Long term (current) use of immunosuppressive biologic; Z79.899 Other long term (current) drug therapy

== ENCOUNTER → 2025-01-07 | Outpatient (RCR) | payer MEDICARE ==
[~2025-01-07] MED LIST changes: +CVS-161 PO; +LETR2.5T2 PO
== END ==
LOC: M ONCR 12-23 13:47
PROVIDERS: ATTEND General Practice
DX: Z51.0 Encounter for antineoplastic radiation therapy (principal); C50.412 Malignant neoplasm of upper-outer quadrant of left female breast

== ENCOUNTER 2025-01-10 10:30 | Outpatient (RCR) | payer MEDICARE | END 2025-02-06 | LOC: M ONCR 10:30 | PROVIDERS: ATTEND General Practice | DX: Z51.0 Encounter for antineoplastic radiation therapy (principal); C50.412 Malignant neoplasm of upper-outer quadrant of left female breast ==

== ENCOUNTER 2025-01-18 06:09 | Day surgery (SDC) | payer MEDICARE ==
[~2025-01-18] VITALS: Ht 157.5 cm; Wt 77.6 kg
[2025-01-18] MEDS ORDERED: LIDOCAINE 2% 100 MG/5 ML SDV (FOR ANES.) As Ordered ONE (06:35)
[2025-01-18 08:00] VITALS: BP 133/83; TEMP 97.3; O2SAT 98
== END 2025-01-18 08:37 | disposition home or self-care (01) ==
LOC: M SDC 06:09
PROVIDERS: ATTEND Internal Medicine Cardiovascular Disease
DX: I48.19 Other persistent atrial fibrillation (principal); E11.9 Type 2 diabetes mellitus without complications; Z88.0 Allergy status to penicillin; Z88.8 Allergy status to other drugs, medicaments and biological substances; Z79.899 Other long term (current) drug therapy

== ENCOUNTER → 2025-02-13 | Outpatient (REF) | payer MEDICARE | LOC: M LAB REF 16:41 | PROVIDERS: ATTEND Student in an Organized Health Care Education/Training Program | DX: C50.912 Malignant neoplasm of unspecified site of left female breast (principal) ==